=== PATIENT | female | born 1975 | race Caucasian/White ===

== ENCOUNTER 2022-01-24 17:39 | Day surgery (SDC) | payer OTHER ==
[2022-01-24 17:58] VITALS: TEMP 98.2
[2022-01-24] MEDS ORDERED: IRON SUCROSE INJECTION 200 MG/100 ML BAG IVPB ONE (18:00)
[2022-01-24 19:00] VITALS: BP 126/67; PULSE 89
== END 2022-01-24 19:01 | disposition home or self-care (01) ==
LOC: FINFUSION 17:39 → FM/S 17:51 → FINFUSION 19:01
PROVIDERS: ATTEND Family Medicine
PROC: 3E033GC Introduction of Other Therapeutic Substance into Peripheral Vein, Percutaneous Approach (ICD-10-PCS; principal; 2022-01-24)
DX: D50.9 Iron deficiency anemia, unspecified (principal)
CPT/HCPCS: 96365; J1756

== ENCOUNTER 2022-01-31 15:54 | Day surgery (SDC) | payer OTHER ==
[2022-01-31 18:00] VITALS: BP 119/69; PULSE 89; TEMP 98.9
[2022-01-31] MEDS ORDERED: IRON SUCROSE INJECTION 200 MG in SODIUM CHLORIDE 100 ML IVPB ONE (18:00)
== END 2022-01-31 17:50 | disposition home or self-care (01) ==
LOC: FINFUSION 15:54 → FM/S 15:59 → FINFUSION 17:50
PROVIDERS: ATTEND Family Medicine
PROC: 3E033GC Introduction of Other Therapeutic Substance into Peripheral Vein, Percutaneous Approach (ICD-10-PCS; principal; 2022-01-31)
DX: D50.9 Iron deficiency anemia, unspecified (principal)
CPT/HCPCS: 96365; J1756